=== PATIENT | male | born 1950 | race Caucasian/White ===

== ENCOUNTER 2017-02-25 10:14 | Emergency (ER) | payer MEDICARE, OTHER ==
[2017-02-25] MEDS ORDERED: Amoxicillin/Clavulanate K 875-125 MG Tab ONE (10:45)
[2017-02-25 11:04] VITALS: BP 118/69
--- NOTE | 2017-02-26 11:04 | EDM.PDOC ---
ED HPI GENERAL MEDICAL PROBLEM - General Chief Complaint: General Stated Complaint: possible toe infection Time Seen by Provider: 02/25/17 11:00 Source of Information: Reports: Patient History Limitations: Reports: No Limitations - History of Present Illness INITIAL COMMENTS - FREE TEXT/NARRATIVE: This is a 66yo M in the ER for a left 5th toe pain at the distal joint. Patient states it has been very painful for days and denies any injury. Patient did have a history of gout. Patient complains of a left forearm lesion. No other complaints. Onset: Gradual Duration: Day(s): Location: Reports: Upper Extremity, Right, Lower Extremity, Left Severity: Mild Improves with: Reports: None Worsens with: Reports: Movement Associated Symptoms: Reports: No Other Symptoms Left 5-Little toe Pain Score (Numeric/FACES): 7 - Related Data Home Meds: Home Meds Cyanocobalamin (Vitamin B-12) [B-12] 1,000 mcg PO DAILY 02/25/17 [History] Gabapentin [Neurontin] 300 mg PO Q6HR 02/25/17 [History] Lisinopril [Prinivil] 10 mg PO DAILY 02/25/17 [History] Naproxen Sodium [Aleve] 220 mg PO BID 02/25/17 [History] RABEprazole Sodium [Rabeprazole Sodium] 20 tab PO DAILY 02/25/17 [History] Vitamin B Complex [B Complex] 1 each PO DAILY 02/25/17 [History] oxyCODONE 15 mg PO Q8H 02/25/17 [History] Past Medical History Cardiovascular History: Reports: Hypertension Respiratory History: Reports: Sleep Apnea Other Respiratory History: has a cpap machine Other Genitourinary History: enlarged prostate Musculoskeletal History: Reports: Arthritis, Gout Hematologic History: Reports: Anemia Oncologic (Cancer) History: Reports: Other (See Below) Other Oncologic History: Walenstroms cancer, last chemo treatment 2 yrs ago. Pt states that it is in remission right now. - Past Surgical History Musculoskeletal Surgical History: Reports: Knee Replacement Other Musculoskeletal Surgeries/Procedures:: left knee replacement Social & Family History - Family History Cardiac: Reports: Other (See Below) Other Cardiac Family History: Dad at 62 with heart problems brother has had a bypass Hematologic: Reports: None Review of Systems - Review of Systems Review Of Systems: ROS reveals no pertinent complaints other than HPI. ED EXAM, GENERAL - Physical Exam Exam: See Below Exam Limited By: No Limitations General Appearance: Alert, WD/WN, No Apparent Distress Eye Exam: Bilateral Eye: EOMI, PERRL Head: Atraumatic, Normocephalic Neck: Normal Inspection Respiratory/Chest: No Respiratory Distress Cardiovascular: Normal Peripheral Pulses Extremities: Normal Inspection, Increased Warmth (of the left 5th toe) Neurological: Alert, Oriented Skin Exam: Other (lesion of the left arm thickened and hard) ED TRAUMA EXTREMITY PROCEDURES - Additional/Other Procedure(s) Other (Free Text) Procedure(s): Cryotherapy of the left forearm lesion 0.7cm with no complications. Course - Vital Signs Last Recorded V/S: Last Vital Signs Temp 36.3 C 02/25/17 11:02 Pulse 84 02/25/17 11:02 Resp 18 02/25/17 11:02 BP 118/69 02/25/17 11:02 Pulse Ox 97 02/25/17 11:02 - Orders/Labs/Meds Labs: Laboratory Tests 02/25/17 02/25/17 02/25/17 Range/Units 10:57 10:57 10:58 WBC 4.5 (4.0-11.0) K/uL RBC 4.16 L (4.50-6.50) M/uL Hgb 13.4 (13.0-18.0) g/dL Hct 39.7 L (40.0-54.0) % MCV 95 (76-96) fL MCH 32.2 H (27.0-32.0) pg MCHC 33.8 (31.0-35.0) g/dL RDW 14.6 (11.0-16.0) % Plt Count 143 L (150-400) K/uL MPV 10.4 H (6.0-10.0) fL Neut % (Auto) 69.1 (45.0-70.0) % Lymph % (Auto) 14.8 L (20.0-40.0) % [place] % (Auto) 13.9 H (3.0-10.0) % Eos % (Auto) 1.8 (1.0-5.0) % Baso % (Auto) 0.4 (0.0-0.5) % Neut # (Auto) 3.07 (2.00-7.50) K/uL Lymph # (Auto) 0.66 L (1.50-4.00) K/uL [place] # (Auto) 0.62 (0.20-0.80) K/uL Eos # (Auto) 0.08 (0.04-0.40) K/uL Baso # (Auto) 0.02 (0.02-0.10) K/uL Sodium 140 (136-145) mmol/L Potassium 4.9 (3.5-5.1) mmol/L Chloride 101 (98-107) mmol/L Carbon Dioxide 31.9 (21.0-32.0) mmol/L Anion Gap 12.0 (5.0-15.0) mmol/L BUN 17 (8-26) mg/dL Creatinine 1.43 H (0.70-1.30) mg/dL Est Cr Clr Drug Dosing 55.02 mL/min Estimated GFR (MDRD) 49 L (>60) MLS/MIN BUN/Creatinine Ratio 11.9 (6-25) Glucose 97 (74-100) mg/dL Uric Acid 7.0 (2.6-7.2) mg/dL Calcium 9.3 (8.5-10.1) mg/dL Departure - Departure Time of Disposition: 12:20 Disposition: Home, Self-Care 01 Condition: Good Clinical Impression: Toe pain, left, Actinic keratosis Clinical Impression: (Ruled Out): Toe pain, right - Discharge Information Instructions: Wound Infection Referrals: PCP,None [Primary Care Provider] - Forms: ED Department Discharge Care Plan Goals: Take antibiotic as prescribed. Return to hospital or clinic if symptoms worsen. Follow up with your primary Physician. Discussed f/u of skin lesion if it persists with PCP. Antibiotic more for empiric treatment of left toe. Uric acid negative. Discussed side effects and benefits of antibiotics. Patient agrees with plan and f/u.
== END 2017-02-25 12:14 | disposition home or self-care (01) ==
LOC: LB.ED 10:14
DX: M79.675 Pain in left toe(s) (principal); L57.0 Actinic keratosis
CPT/HCPCS: 17000; 36415; 80048; 84550; 85025; 99282; A9270

== ENCOUNTER 2018-12-15 17:37 | Emergency (ER) | payer MEDICARE, OTHER ==
[2018-12-15] MEDS ORDERED: predniSONE 10 MG Tab ONE (17:45)
[2018-12-15] MEDS ORDERED: Naproxen 500 MG Tab ONE (17:45)
[2018-12-15 17:48] VITALS: BP 108/60
--- NOTE | 2018-12-17 16:20 | EDM.PDOC ---
ED HPI GENERAL MEDICAL PROBLEM - General Chief Complaint: Lower Extremity Injury/Pain Stated Complaint: GOUT Time Seen by Provider: 12/15/18 17:45 Source of Information: Reports: Patient History Limitations: Reports: No Limitations - History of Present Illness INITIAL COMMENTS - FREE TEXT/NARRATIVE: This is a 68yo M here for concerns of toe pain. He states it started in the am and has worsened. He denies any injury but has a history of gout and has been drinking more for fishing. Onset: Sudden Duration: Hour(s): Location: Reports: Lower Extremity, Left LEFT TOE Pain Score (Numeric/FACES): 6 - Related Data Allergies Allergy/AdvReac Type Severity Reaction Status Date / Time No Known Allergies Allergy Verified 12/15/18 17:48 Home Meds: Home Meds Cyanocobalamin (Vitamin B-12) [B-12] 1,000 mcg PO DAILY 02/25/17 [History] Gabapentin [Neurontin] 300 mg PO Q6HR 02/25/17 [History] Lisinopril [Prinivil] 10 mg PO DAILY 02/25/17 [History] Naproxen Sodium [Aleve] 220 mg PO BID 02/25/17 [History] RABEprazole Sodium [Rabeprazole Sodium] 20 tab PO DAILY 02/25/17 [History] Vitamin B Complex [B Complex] 1 each PO DAILY 02/25/17 [History] oxyCODONE 15 mg PO Q8H 02/25/17 [History] Past Medical History Cardiovascular History: Reports: Hypertension Respiratory History: Reports: Sleep Apnea Other Respiratory History: has a cpap machine Other Genitourinary History: enlarged prostate Musculoskeletal History: Reports: Arthritis, Gout Hematologic History: Reports: Anemia Oncologic (Cancer) History: Reports: Other (See Below) Other Oncologic History: Walenstroms cancer, last chemo treatment 2 yrs ago. Pt states that it is in remission right now. - Past Surgical History Musculoskeletal Surgical History: Reports: Knee Replacement Other Musculoskeletal Surgeries/Procedures:: left knee replacement Social & Family History - Family History Cardiac: Reports: Other (See Below) Other Cardiac Family History: Dad at 62 with heart problems brother has had a bypass Hematologic: Reports: None ED ROS GENERAL - Review of Systems Review Of Systems: ROS reveals no pertinent complaints other than HPI. ED EXAM, GENERAL - Physical Exam Exam: See Below Exam Limited By: No Limitations General Appearance: Alert, WD/WN, No Apparent Distress Ears: Normal External Exam Nose: Normal Inspection Throat/Mouth: Normal Inspection Head: Atraumatic, Normocephalic Neck: Normal Inspection Respiratory/Chest: No Respiratory Distress, Lungs Clear Cardiovascular: Normal Peripheral Pulses, Regular Rate, Rhythm Extremities: No: Other (left 5th toe swelling and redness) Course - Vital Signs Last Recorded V/S: Last Vital Signs Temp 37.6 C 12/15/18 17:41 Pulse 85 12/15/18 17:41 Resp 16 12/15/18 17:41 BP 108/60 12/15/18 17:41 Pulse Ox 96 12/15/18 17:41 - Orders/Labs/Meds Meds: Medications Discontinued Medications Generic Name Dose Route Start Last Admin Trade Name [place] PRN Reason Stop Dose Admin Naproxen 10,000 mg 12/15/18 17:45 Naprosyn .ROUTE 12/15/18 17:46 .STK-MED ONE Prednisone 150 mg 12/15/18 17:45 Prednisone .ROUTE 12/15/18 17:46 .STK-MED ONE Departure - Departure Time of Disposition: 18:30 Disposition: Home, Self-Care 01 Clinical Impression: Gout - Discharge Information Instructions: Low-Purine Eating Plan, Gout, [id number] Forms: ED Department Discharge Additional Instructions: Please follow-up in the clinic if the pain is not getting better in the next couple days. Take the prednisone for the next 3 days-5 tabs each for three days Take the naproxen until the pain is better only twice a day, once in the morning and once at night. DO NOT take motrin or ibuprofen while you are taking the naproxen. - Problem List & Annotations (1) Gout SNOMED Code(s): 00710649 Code(s): M10.9 - GOUT, UNSPECIFIED Status: Acute Priority: High Qualifiers: Gout site: toe Encounter type: initial encounter Chronicity: acute Laterality: left - Problem List Review Problem List Initiated/Reviewed/Updated: Yes - Assessment/Plan Plan: Patient counseled on left 5th digit and care for gout. Discussed gout diet and management with colchicine and indomethacin. Discussed side effects and renal clearance and management and f/u if symptoms persist or worsen. F/u as directed with PCP when he gets home and as needed in the ER/Urgent care.
== END 2018-12-15 18:00 | disposition home or self-care (01) ==
LOC: LB.ED 17:37
DX: M10.9 Gout, unspecified (principal); I10 Essential (primary) hypertension; D64.9 Anemia, unspecified; Z79.899 Other long term (current) drug therapy
CPT/HCPCS: 99283; A9270-GY

== ENCOUNTER 2021-03-04 11:35 | Emergency (ER) | payer MEDICARE, OTHER ==
[2021-03-04 12:15] VITALS: BP 147/55; PULSE 71
[2021-03-04] MEDS ORDERED: Ketorolac 60 MG/2 ML SDV IM ONE (12:53)
--- NOTE | 2021-03-04 12:59 | EDM.PDOC ---
ED HPI GENERAL MEDICAL PROBLEM - General Chief Complaint: Lower Extremity Injury/Pain Stated Complaint: PAIN IN GROIN Time Seen by Provider: 03/04/21 12:10 - History of Present Illness INITIAL COMMENTS - FREE TEXT/NARRATIVE: Patient arrives to the emergency room after initially going to the clinic today for left thigh or groin pain. He states this started last or Thursday after being in a boat that was very rough while fishing for the day. Patient denies any falls or injuries. He states he can get into positions at rest that are comfortable for him, and the same with sleeping. The pain is worse when he is standing and doing weightbearing activities such as walking. Treatments CRANE SERVICE TECHNICIAN: Reports: Other (see below) Other Treatments CRANE SERVICE TECHNICIAN: Oxycodone - Related Data Allergies Allergy/AdvReac Type Severity Reaction Status Date / Time No Known Allergies Allergy Verified 03/04/21 11:58 Home Meds: Home Meds Cyanocobalamin (Vitamin B-12) [B-12] 1,000 mcg PO DAILY 02/25/17 [History] Naproxen Sodium [Aleve] 220 mg PO BID PRN 02/25/17 [History] RABEprazole Sodium [Rabeprazole Sodium] 20 tab PO DAILY 02/25/17 [History] Vitamin B Complex [B Complex] 1 each PO DAILY 02/25/17 [History] lisinopriL [Prinivil] 10 mg PO DAILY 02/25/17 [History] Gabapentin [Neurontin] 800 mg PO BID 03/04/21 [History] Ibrutinib [Imbruvica] 420 mg PO DAILY 03/04/21 [History] oxyCODONE HCl [Oxycodone HCl] 60 mg PO Q6HR PRN 03/04/21 [History] Past Medical History HEENT History: Reports: Impaired Vision Cardiovascular History: Reports: Hypertension Respiratory History: Reports: Sleep Apnea Other Respiratory History: has a cpap machine Other Genitourinary History: enlarged prostate Musculoskeletal History: Reports: Arthritis, Gout Hematologic History: Reports: Anemia Oncologic (Cancer) History: Reports: Other (See Below) Other Oncologic History: Walenstroms cancer, last chemo treatment 2 yrs ago. Pt states that it is in remission right now. Has had prostate cancer and skin cancer - Past Surgical History Cardiovascular Surgical History: Reports: None Respiratory Surgical History: Reports: None Musculoskeletal Surgical History: Reports: Knee Replacement Other Musculoskeletal Surgeries/Procedures:: left knee replacement Dermatological Surgical History: Reports: Skin Biopsy Social & Family History - Family History Cardiac: Reports: Other (See Below) Other Cardiac Family History: Dad at 62 with heart problems brother has had a bypass Hematologic: Reports: None - Tobacco Use Tobacco Use Status *Q: Never Tobacco User Second Hand Smoke Exposure: No - Caffeine Use Caffeine Use: Reports: Coffee - Recreational Drug Use Recreational Drug Use: No Review of Systems - Review of Systems Review Of Systems: Comprehensive ROS is negative, except as noted in HPI. Musculoskeletal: Reports: Other (left hip and thigh pain.) ED EXAM, GENERAL - Physical Exam Exam: See Below Free Text/Narrative:: Physical exam the patient is awake and alert no respiratory distress. Examining the left anterior thigh/hip area reveals the skin is intact with no swelling or discoloration. I cannot reproduce any pain with palpation other than slight discomfort over the greater trochanter area. Patient does have some pain with flexion and extension of the hip area done passively but states it is worse when he is bearing weight. Skin is warm and dry. Lungs are clear, cardiac heart sounds are distinct without murmurs. Course - Vital Signs Last Recorded V/S: Last Vital Signs Temp 98.0 F 03/04/21 12:14 Pulse 71 03/04/21 12:14 Resp 18 03/04/21 12:14 BP 147/55 H 03/04/21 12:14 Pulse Ox 93 L 03/04/21 12:14 - Orders/Labs/Meds Orders: Active Orders 24 hr Category Date Time Status Hip Min 2V or 3V w Pelvis Lt [CR] Stat Exams 03/04/21 12:03 Taken Ketorolac [Toradol] Med 03/04/21 12:53 Once 60 mg IM ONETIME ONE Medication Orders Ketorolac Tromethamine (Ketorolac 60 Mg/2 Ml Sdv) 60 mg IM ONETIME ONE Stop: 03/04/21 12:54 Meds: Medications Generic Name Dose Route Start Last Admin Trade Name Freq PRN Reason Stop Dose Admin Ketorolac Tromethamine 60 mg 03/04/21 12:53 Ketorolac 60 Mg/2 Ml Sdv IM 03/04/21 12:54 ONETIME ONE - Radiology Interpretation Free Text/Narrative:: X-ray of the left hip show some arthritic changes but I do not see any acute fractures or bony abnormalities. Departure - Departure Time of Disposition: 13:00 Disposition: Home, Self-Care 01 Condition: Good Clinical Impression: Strain of left hip Qualifiers: Encounter type: initial encounter Qualified Code(s): S76.012A - Strain of muscle, fascia and tendon of left hip, initial encounter - Discharge Information *PRESCRIPTION DRUG MONITORING PROGRAM REVIEWED*: No *COPY OF PRESCRIPTION DRUG MONITORING REPORT IN PATIENT SHAMAR: No Instructions: Hip Pain Referrals: PCP,None [Primary Care Provider] - Additional Instructions: Patient will be started on Toradol 10 mg 3 times daily taking his first dose early this evening. Take with food. Activity should be light duty as tolerated, with heat being applied to the painful area as needed. The patient is on pepe cotics for cancer pain he he states he uses this regularly and he should continue doing so. The patient plans on going home in a couple of days, I advised him to follow-up when he gets home later this week for recheck further imaging including possible MRI may be needed if his symptoms do not improve with these treatment measures. The patient has no further questions end of dictation Sepsis Event Note (ED) - Evaluation Sepsis Screening Result: No Definite Risk - Focused Exam Vital Signs: Vital Signs Temp Pulse Resp BP Pulse Ox 03/04/21 12:14 98.0 F 71 18 147/55 H 93 L - My Orders Last 24 Hours: My Active Orders 03/04/21 12:03 Hip Min 2V or 3V w Pelvis Lt [CR] Stat 03/04/21 12:53 Ketorolac [Toradol] 60 mg IM ONETIME ONE - Assessment/Plan Last 24 Hours: My Active Orders 03/04/21 12:03 Hip Min 2V or 3V w Pelvis Lt [CR] Stat 03/04/21 12:53 Ketorolac [Toradol] 60 mg IM ONETIME ONE
[2021-03-04] MEDS ORDERED: Ketorolac 60 MG/2 ML SDV ONE (13:07)
--- NOTE | 2021-03-04 16:14 | CR ---
Date of Service: 03/04/21 Clinical Data: Hip/ proximal thigh pain. PELVIS AND LEFT HIP: There are moderate osteoarthritic changes of both hip joints. There are degenerative changes involving the SI joints and symphysis pubis. No acute fracture or dislocation. No lytic or blastic bone lesions. There are surgical clips in the pelvis. [id number] MTDD
== END 2021-03-04 13:10 | disposition home or self-care (01) ==
LOC: LB.ED 11:35
DX: S76.012A Strain of muscle, fascia and tendon of left hip, initial encounter (principal); I10 Essential (primary) hypertension; Z79.899 Other long term (current) drug therapy; X50.9XXA Other and unspecified overexertion or strenuous movements or postures, initial encounter
CPT/HCPCS: 73502; 96372; 99283; J1885

== ENCOUNTER 2021-04-25 12:06 | Emergency (ER) | payer MEDICARE, OTHER ==
--- NOTE | 2021-04-25 12:46 | EDM.PDOC ---
ED HPI GENERAL MEDICAL PROBLEM - General Chief Complaint: Skin Complaint Stated Complaint: RASH ON RIGHT SIDE Time Seen by Provider: 04/25/21 12:10 - History of Present Illness INITIAL COMMENTS - FREE TEXT/NARRATIVE: Pt comes to the ER with C/O a painful rash on his chest wall that started yesterday. He has not been sick, and has had no recent injuries to this area. abdomen Pain Score (Numeric/FACES): 7 - Related Data Allergies Allergy/AdvReac Type Severity Reaction Status Date / Time No Known Allergies Allergy Verified 03/04/21 11:58 Home Meds: Home Meds Cyanocobalamin (Vitamin B-12) [B-12] 1,000 mcg PO DAILY 02/25/17 [History] Naproxen Sodium [Aleve] 220 mg PO BID PRN 02/25/17 [History] RABEprazole Sodium [Rabeprazole Sodium] 20 tab PO DAILY 02/25/17 [History] Vitamin B Complex [B Complex] 1 each PO DAILY 02/25/17 [History] lisinopriL [Prinivil] 10 mg PO DAILY 02/25/17 [History] Gabapentin [Neurontin] 800 mg PO BID 03/04/21 [History] Ibrutinib [Imbruvica] 420 mg PO DAILY 03/04/21 [History] oxyCODONE HCl [Oxycodone HCl] 60 mg PO Q6HR PRN 03/04/21 [History] Past Medical History HEENT History: Reports: Impaired Vision Cardiovascular History: Reports: Hypertension Respiratory History: Reports: Sleep Apnea Other Respiratory History: has a cpap machine Other Genitourinary History: enlarged prostate Musculoskeletal History: Reports: Arthritis, Gout Hematologic History: Reports: Anemia Oncologic (Cancer) History: Reports: Other (See Below) Other Oncologic History: Walenstroms cancer, last chemo treatment 2 yrs ago. Pt states that it is in remission right now. Has had prostate cancer and skin cancer - Past Surgical History Cardiovascular Surgical History: Reports: None Respiratory Surgical History: Reports: None Musculoskeletal Surgical History: Reports: Knee Replacement Other Musculoskeletal Surgeries/Procedures:: left knee replacement Dermatological Surgical History: Reports: Skin Biopsy Social & Family History - Family History Cardiac: Reports: Other (See Below) Other Cardiac Family History: Dad at 62 with heart problems brother has had a bypass Hematologic: Reports: None - Caffeine Use Caffeine Use: Reports: Coffee ED ROS GENERAL - Review of Systems Review Of Systems: Comprehensive ROS is negative, except as noted in HPI. Skin: Reports: Other (Painful rash on chest.) ED EXAM, SKIN/RASH Exam: See Below Skin: Zoster-Like Rash (on his Rt chest wall, below the breast and wrapping around the lateral chest wall. There are scabs and vesicles present.) Course - Re-Assessments/Exams Free Text/Narrative Re-Assessment/Exam: 04/25/21 12:47 Acyclovir will be started, 800 5 times a day x 7 days. He is on Neurontin 800 bid, we will increase it to TID dosing. He also has Oxycodone that he takes for chronic pain daily. I advised him to follow up with his PCP as needed. They will be going home tomorrow. He can also ask his PCP about getting the newer Shingles vaccine. He did have the original vaccine years ago. Departure - Departure Time of Disposition: 12:25 Disposition: Home, Self-Care 01 Condition: Good Clinical Impression: Shingles outbreak Qualifiers: Herpes zoster complications: unspecified herpes zoster complication Qualified Code(s): B02.8 - Zoster with other complications - Discharge Information *PRESCRIPTION DRUG MONITORING PROGRAM REVIEWED*: Yes *COPY OF PRESCRIPTION DRUG MONITORING REPORT IN PATIENT SHAMAR: Yes Instructions: Shingles, [id number] Referrals: PCP,None [Primary Care Provider] - Forms: ED Department Discharge Additional Instructions: Take 1 prescribed anti-viral pill 5x a day, along with increasing gabapentin dose to include a noon dose for pain.
== END 2021-04-25 12:35 | disposition home or self-care (01) ==
LOC: LB.ED 12:06
DX: B02.8 Zoster with other complications (principal); I10 Essential (primary) hypertension; Z79.899 Other long term (current) drug therapy
CPT/HCPCS: 99282

== ENCOUNTER 2024-04-29 14:35 | Emergency (ER) | payer MEDICARE, OTHER ==
[2024-04-29 16:34] LABS: ANION GAP 9.8 mmol/L (5.0-15.0); BUN/CREATININE RATIO 16.4 (6-25); CALCIUM 8.9 mg/dL (8.5-10.1); CARBON DIOXIDE,CO2 30.5 mmol/L (21.0-32.0); CREATININE 1.22 mg/dL (0.70-1.30); EST CRCL DRUG DOSING (CG) 58.31 mL/min; POTASSIUM,K 4.3 mmol/L (3.5-5.1)
[2024-04-29] MEDS: Cyclobenzaprine 10 MG Tab PO ONE (16:38)
[2024-04-29] MEDS: Ketorolac 30 MG/ML SDV IM ONE (16:39)
[2024-04-29] MEDS ORDERED: Cyclobenzaprine 10 MG Tab ONE (16:45)
[2024-04-29 16:52] VITALS: BP 129/59; PULSE 61
[2024-05-02] MEDS: Ketorolac 30 MG/ML SDV ONE (08:08)
[2024-05-02] MEDS: Cyclobenzaprine 10 MG Tab ONE (08:08)
== END 2024-04-29 16:56 | disposition home or self-care (01) ==
LOC: LB.ED 14:35
DX: S39.012A Strain of muscle, fascia and tendon of lower back, initial encounter (principal); I11.0 Hypertensive heart disease with heart failure; I50.9 Heart failure, unspecified; X50.0XXA Overexertion from strenuous movement or load, initial encounter
CPT/HCPCS: 36415; 80048; 96372; 99283; A9270-GY; J1885